=== PATIENT | female | born 1980 | race Caucasian/White ===

== ENCOUNTER 2022-02-13 01:49 | Day surgery (SDC) | payer BC, SELFPAY ==
--- NOTE | 2022-02-01 15:10 | PC.NURSE ---
Report to the Outpatient Waiting Room, entrance under the green pavilion located off [facility], at time _0830 on date _02/13/22 . OR Time: __1030 . - You and your visitor will be asked a series of questions to screen for COVID 19 for your protection. - A mask is required within the hospital. Preoperative COVID Testing Requirements: No COVID Test needed if: (proof is required; if not received patient will have Rapid Test prior to entry) - Patient has received COVID Vaccine at least 14 days prior to procedure date or - Patient has positive COVID test result within last 90 days of surgery date. COVID Test needed if above criteria is not met If not COVID vaccinated a COVID test must be conducted within 72 hours of surgery and patient is asked to isolate self from time of testing until procedure. You will go to the [facility] for your COVID testing. The [facility] is located at the corner of [address] [facility]. You will only be called if COVID results are positive and your surgeon may reschedule your elective surgery date. Patients may have clear liquids (water, carbonated beverages, clear teas, apple juice) until 3 hours prior to surgery with a maximum of 20 ounces. - No food from midnight until time of surgery - Infants may have breast milk until 4 hours before surgery, formula 6 hours prior to surgery. - Children will be allowed to drink immediately following surgery. If applicable, please bring a bottle or sippy cup to assist with drinking. Juice, water, soda, and popsicles are readily available. For infants on formula, please bring formula the day of surgery. Pacifiers are allowed. Take the following medications with a SIP of water the morning of surgery: ____NONE Medications to discontinue per physician NONE Date to take last dose____NONE Please no make-up, nail icelandic, hairspray, perfume, deodorant, or body powder the day of surgery. No jewelry (including any body piercings) or valuables the day of surgery, leave them at home. Please take a shower or bath the night before, or the morning of, surgery with an antibacterial soap. Wear comfortable, loose fitting clothing. Children are encouraged to wear pajamas. - Jewelry must be removed prior to entering the operating room. Rings and piercings that are not removed may be cut off. - The hospital will not accept responsibility for valuables. - Please leave all valuables, including medications, at home the day of surgery. If you are going home after surgery, a licensed furniture mover driver must drive you home. - NO public transportation without another adult. - We recommend that an adult stay with you for 24 hours following discharge. - We also recommend that you do not drive, make important decision, drink alcoholic beverages, or take any drugs that were not prescribed by your health care provider for at least 24 hours after your discharge time. For Pediatric surgeries, we recommend two adults accompany the child home (only one inside the building at this time). One visitor will be allowed to accompany the patient into the hospital. Patients visitor will be instructed to remain with patient at all times or leave the building. We will allow the visitor to come back to the postoperative area when patient is ready. Follow any additional instructions given to you from your surgeon. Telephone instructions given to _PATIENT and asked if any additional questions and then verbalized understanding. Patient advised to call surgeon office or pre surgery nurse liaison [phone] if any additional questions.
[2022-02-01 15:21] VITALS: BMI 37.0
--- NOTE | 2022-02-13 08:00 | P.HP_ITS ---
History of Present Illness History of Present Illness Consent: Risks, benefits, and alternatives have been discussed and questions answered. Patient agrees to proceed with procedure. Chief complaint: cin3, abnormal bleeding Narrative: Racquel Mayer is a 41 year old female who was a former patient of Dr. Sprague. She had previously undergone hysteroscopy with Savita ablation in July of 2020 with initially good results. Patient presented [facility] of [facility] with complaints of bleeding on and off since October. It was recommended to proceed with endometrial biopsy which revealed no definitive endometrial tissue but did reveal severe cervical dysplasia. It was recommended to proceed with LEEP conization with top-hat as well as hysteroscopy D&C. Possible pathology was reviewed. Risks of infection, bleeding, perforation, and inability to enter the endometrial cavity were reviewed. Patient voices understanding and agrees to proceed. Review of Systems Review of Systems: not repeated day of surgery; patient states no changes in status [facility] Surgical History Surgical History (Updated 02/13/22 @ 08:05 by Racquel Kyle MD) History of hysteroscopy 2019 Status post hysteroscopic ablation of endometrium Savita ablation 2019 Social History Social History Years smoked: 22 Smoking status: Current every day smoker Tobacco type: cigarettes Alcohol intake: current Drinks per week: 0 Alcohol use details: PT STATES ONCE EVERY 6 MONTHS Substance use: never Living arrangements: with family Spiritual care concerns: No Meds Home Medications and Allergies Home Medications Medication Instructions Recorded Confirmed Type drospirenone (contraceptive) 4 mg PO HS 02/01/22 02/01/22 History [Slynd] Allergies Allergy/AdvReac Type Severity Reaction Status Date / Time No Known Allergies Allergy Verified 02/01/22 15:02 Exam Const: General: healthy appearing and alert Orientation/consciousness: patient oriented x3 GI: GI Palp: Yes Soft to palpation, No Tenderness to palpation present (GI) and No Palpable mass present : External Female Exam: normal external appearance Speculum Exam - Vagina: normal appearance of the vagina and normal vaginal discharge Speculum Exam - Cervix: normal appearance of the cervix and Other cervical findings present (Cervical stenosis) Bimanual exam- vagina & uterus: uterine size normal and consistency normal Bimanual Exam- Adnexa, other: normal adnexae and No adnexal tenderness Neuro: General: patient oriented x3 Assessment and Plan Assessment and plan (1) Severe cervical dysplasia: Code(s): D06.9 - Carcinoma in situ of cervix, unspecified Status: Acute Assessment and Plan: Plan to proceed with LEEP conization with top-hat (2) Abnormal uterine bleeding: Code(s): N93.9 - Abnormal uterine and vaginal bleeding, unspecified Status: Acute Assessment and Plan: Plan to proceed with hysteroscopy D and C
--- NOTE | 2022-02-13 08:00 | WPDHPUPDATE1 ---
History and Physical Update Update Date/Time: 02/13/22 08:00 History and Physical has been reviewed, including an updated exam of the patient. There are NO changes in the patient's condition. Risks, benefits, and alternatives have been discussed and questions answered. Patient agrees to proceed with procedure.
[2022-02-13] MEDS: ACETAMINOPHEN 500 MG TABLET 1000 MG PO (08:59)
[2022-02-13 09:13] VITALS: BP 133/76; PULSE 65; RESP 16; TEMP 36.4; O2SAT 99
[2022-02-13] MEDS: LACTATED RINGERS 1,000 ML 30 ML IV CONT (09:20)
--- NOTE | 2022-02-13 09:24 | P.PNAN_ITS ---
Anes - Initial Pre Proc Eval Procedure: Operation Date: 02/13/22 10:30 Proposed Procedures p Hysteroscopy Dilation and Curettage - Racquel Kyle MD s Loop Electrical Excision Procedure with Top Hat - Racquel Kyle MD Date/Time: 02/13/22 09:24 Surgeon: Racquel Kyle MD Pre Op Diagnosis: cin3, abnormal bleeding Patient Data Age: 41 Gender: F Height: 1.68 m Weight: 104.7 kg Last Vital Signs Temp 36.4 C 02/13/22 09:13 Pulse 65 02/13/22 09:13 Resp 16 02/13/22 09:13 BP 133/76 02/13/22 09:13 Pulse Ox 99 02/13/22 09:13 Allergies Allergy/AdvReac Type Severity Reaction Status Date / Time No Known Allergies Allergy Verified 02/13/22 08:56 Home Medications Medication Instructions Recorded Confirmed Type drospirenone (contraceptive) 4 mg PO HS 02/01/22 02/13/22 History [Slynd] melatonin 20 mg PO HS 02/13/22 02/13/22 History Patient hx anesthesia problems: none Family hx anesthesia problems: none Results Review: All pre-operative results and documents have been reviewed as part of the pre-operative evaluation. [facility] Surgical History Surgical History (Updated 02/13/22 @ 08:05 by Racquel Kyle MD) History of hysteroscopy 2019 Status post hysteroscopic ablation of endometrium Savita ablation 2019 Social History Social History Years smoked: 22 Smoking status: Current every day smoker Tobacco type: cigarettes Alcohol intake: current Drinks per week: 0 Alcohol use details: PT STATES ONCE EVERY 6 MONTHS Substance use: never Living arrangements: with family Spiritual care concerns: No Anes - Eval Final PreProcedure Day of Procedure 02/13/22 09:24 Patient weight: obese Heart: regular rate and rhythm Lungs: clear to auscultation and normal air movement Airway: Mallampati scale class II Neurological: alert and oriented Last oral intake: >/= 8 hours ASA classification: III Emergent: no Anesthetic plan: proceed Anesthesia type and monitoring: general GIVS and standard monitoring Results Review: All pre-operative results and documents have been reviewed as part of the pre-operative evaluation. Informed Consent: The patient's anesthetic plan and its attendant risks and benefits were discussed with the patient/family/POA. Questions were solicited and answers provided to the satisfaction of the patient/family/POA.
[2022-02-13] MEDS: KETOROLAC 30 MG/ML VIAL (*BKC) IV PUSH (10:57)
[2022-02-13] MEDS: LIDO 1%/EPINEPHRINE 1:100,000 50 ML VIAL 20 ML INFILTRATE (10:58)
--- NOTE | 2022-02-13 11:06 | P.OP_ITS ---
Procedure Note - Detailed Date of Procedure 02/13/22 Pre-op Diagnosis Severe cervical dysplasia, abnormal uterine bleeding Post-op Diagnosis Same Procedure Performed Colposcopy LEEP conization of the cervix with top-hat D&C hysteroscopy Surgeon Racquel Kyle MD Anesthesia MAC and Local Findings By colposcopy no aceto-white epithelium was noted. There are thickened vessels along the entire posterior cervix. Hysteroscopic findings reveal a thickened posterior left wall. The remainder of the endometrium appears grossly normal but hyperemic. Tubal ostia are both visualized and appear normal. Description of Procedure The patient was taken to the operating room and placed under anesthesia in the dorsal lithotomy position. She was prepped and draped externally only. Coated bivalve speculum was placed in the vagina and the cervix is swabbed with ascetic acid. The colposcope was used to evaluate the ectocervix with the above-stated findings. The cervix is quite large therefore an anterior and posterior pass was planned for the LEEP. The cervix is injected in each quadrant with 1% lidocaine with epinephrine. A 2x1cm loop was used to perform an anterior pass. The same loop was used to perform a posterior pass. A 1x1cm sq loop was used to perform the top-hat. The cervix is grasped on the anterior lip with a tenaculum. The cervix is serially dilated with Hegar was with difficulty due to severe stenosis. The uterus sounds to 7cm. The diagnostic hysteroscope was placed with the above- stated findings. The hysteroscope was then removed. The medium sharp curette is used to curette the endometrium until a good uterine cry was noted in all areas. The Monsel's solution was applied to the cone bed. Good hemostasis is noted. All instruments are removed. Sponge, needle, and instrument counts are correct per the OR staff. The patient is awakened from anesthesia and taken to recovery in stable condition. Estimated Blood Loss 25 Drains No Packing No Pathology Yes (LEEP conization anterior lip marked at 12:00 with suture. LEEP conization posterior lip marked at 6:00 with suture. Top-hat marked at 12:00 with suture. Endometrial curettings) Complications No immediate complications Condition Stable Disposition PACU
[2022-02-13 11:09] VITALS: BP 123/68; PULSE 83; RESP 24; O2SAT 93
[2022-02-13 11:39] VITALS: BP 131/82; PULSE 77; RESP 16; O2SAT 97
[2022-02-13 12:09] VITALS: BP 127/70; PULSE 80; RESP 16
== END 2022-02-13 12:20 | disposition home or self-care (01) ==
PROVIDERS: Visit Provider Obstetrics & Gynecology Gynecology
PROC: 0U5B8ZZ Destruction of Endometrium, Via Natural or Artificial Opening Endoscopic (ICD-10-PCS; CPT 58563; principal; 2022-02-13 10:30)
PROC: 0UBC7ZZ Excision of Cervix, Via Natural or Artificial Opening (ICD-10-PCS; CPT 57522; 2022-02-13 10:30)
DX: D06.0 Carcinoma in situ of endocervix (principal); D06.1 Carcinoma in situ of exocervix; N85.8 Other specified noninflammatory disorders of uterus; N93.9 Abnormal uterine and vaginal bleeding, unspecified; F17.210 Nicotine dependence, cigarettes, uncomplicated; E66.9 Obesity, unspecified; Z68.37 Body mass index [BMI] 37.0-37.9, adult
CPT/HCPCS: 58558; 57460; 88305; 88307; A9270; J1100; J1885; J2250; J2405; J2704; J3010; J7030; J7120

== ENCOUNTER 2022-04-24 00:24 | Day surgery (SDC) | payer BC, SELFPAY ==
[2022-04-19 11:01] VITALS: BMI 36.0
--- NOTE | 2022-04-19 11:20 | PC.NURSE ---
Report to the Outpatient Waiting Room, entrance under the green pavilion located off [facility], at 0800 on 04-24-22. OR Time: 1000. - You and your visitor will be asked a series of questions to screen for COVID 19 for your protection. - Only one visitor is allowed at this time. - The patient visitor is requested to leave or wait in car when not with patient. - A mask is required within the hospital. Patients may have clear liquids (water, carbonated beverages, clear teas, apple juice) until 3 hours prior to surgery with a maximum of 20 ounces. 0700 - No food from midnight until time of surgery - Infants may have breast milk until 4 hours before surgery, infant formula 6 hours prior to surgery. - Children will be allowed to drink immediately following surgery. If applicable, please bring a bottle or sippy cup to assist with drinking. Juice, water, soda, and popsicles are readily available. For infants on formula, please bring formula the day of surgery. Pacifiers are allowed. Take the following medications with a SIP of water the morning of surgery: None Medications to discontinue per physician: vitamins and supplements Date to take last dose: 04-21-22 Please no make-up, nail french, hairspray, perfume, deodorant, or body powder the day of surgery. No jewelry (including any body piercings) or valuables the day of surgery, leave them at home. Please take a shower or bath the night before, or the morning of, surgery with an antibacterial soap. Wear comfortable, loose fitting clothing. Children are encouraged to wear pajamas. - Jewelry must be removed prior to entering the operating room. Rings and piercings that are not removed may be cut off. - The hospital will not accept responsibility for valuables. - Please leave all valuables, including medications, at home the day of surgery. If you are going home after surgery, a licensed class b truck driver must drive you home. - NO public transportation without another adult. - We recommend that an adult stay with you for 24 hours following discharge. - We also recommend that you do not drive, make important decision, drink alcoholic beverages, or take any drugs that were not prescribed by your health care provider for at least 24 hours after your discharge time. For Pediatric surgeries, we recommend two adults accompany the child home (only one inside the building at this time). Follow any additional instructions given to you from your surgeon. If you or anyone in your household have experienced Covid symptoms in the past week, please notify your surgeon or the nurse liaison at the phone number below for possible testing. Telephone instructions given to Racquel Mayer and asked if any additional questions and then verbalized understanding. Patient advised to call surgeon office or pre surgery nurse liaison [phone] if any additional questions.
--- NOTE | 2022-04-24 07:31 | WPDHPUPDATE1 ---
History and Physical Update Update Date/Time: 04/24/22 07:31 History and Physical has been reviewed, including an updated exam of the patient. There are NO changes in the patient's condition. Risks, benefits, and alternatives have been discussed and questions answered. Patient agrees to proceed with procedure.
--- NOTE | 2022-04-24 07:31 | PM.IMHP ---
H&P: HPI History of Present Illness Date/Time: 04/24/22 07:31 Chief Complaint: Severe dysplasia of the cervix Narrative: The patient is a 41-year-old 0 admitted for cold knife conization of the cervix. Patient had a LEEP conization of the cervix which revealed severe dysplasia with a positive endocervical margin. It was recommended to proceed with cold knife conization. If margins are clear and no invasive carcinoma is found on the final specimen, we will proceed with total abdominal hysterectomy bilateral salpingectomy 48hours later. Risks the cone including bleeding, injury to surrounding organs, and possible pathology were reviewed. Risk of the hysterectomy including infection, bleeding, injury to internal organs (eg. Bowel, bladder, ureters, ovaries), deep vein thrombosis, and general anesthesia were reviewed. The possibility of cancelling the hysterectomy due to positive margins or invasive carcinoma were reviewed. Patient voices understanding of the plan and agrees to proceed. Review of Systems Genitourinary: Genitourinary: Reports abnormal vaginal bleeding (Irregular and prolonged bleeding) [facility] Surgical History Surgical History (Updated 04/24/22 @ 07:56 by Racquel Kyle MD) History of hysteroscopy 2019-normal History of loop electrical excision procedure (LEEP) February 2022 Status post hysteroscopic ablation of endometrium Savita ablation 2019 Family History Family History (Updated 04/24/22 @ 07:56 by Racquel Kyle MD) Father Hypertension Grandparent Diabetes mellitus Heart disease Hypertension Cerebrovascular accident Social History Social History Years smoked: 20 Smoking status: Current every day smoker Tobacco type: cigarettes Second hand tobacco smoke exposure: Yes ( smokes) Alcohol intake: current Drinks per week: 0 Alcohol use details: 1-2/YEAR Substance use: never Substance use type: does not use Living arrangements: with family Spiritual care concerns: No Meds Home Medications and Allergies Home Medications Medication Instructions Recorded Confirmed Type drospirenone (contraceptive) 4 mg 4 mg PO HS 02/01/22 04/20/22 History (28) tablet (Slynd) melatonin 10 mg tablet,extended 20 mg PO HS 02/13/22 04/20/22 History release,multiphase uwqfmtor-isb-bbjg-FA-Ca carb-vit K 1 tablet PO DAILY 04/19/22 04/20/22 History 18 mg iron-400 mcg-500 mg tablet (One-A-Day Womens Formula) Allergies Allergy/AdvReac Type Severity Reaction Status Date / Time No Known Allergies Allergy Verified 04/20/22 15:06 Exam Const: General: healthy appearing and alert Orientation/consciousness: patient oriented x3 GI: GI Palp: Yes Soft to palpation, No Tenderness to palpation present (GI) and No Palpable mass present : External Female Exam: normal external appearance Speculum Exam - Vagina: normal appearance of the vagina and normal vaginal discharge Speculum Exam - Cervix: normal appearance of the cervix Bimanual exam- vagina & uterus: uterine size normal and consistency normal Bimanual Exam- Adnexa, other: normal adnexae and No adnexal tenderness Neuro: General: patient oriented x3 Assessment and Plan Assessment and plan (1) Severe cervical dysplasia: Code(s): D06.9 - Carcinoma in situ of cervix, unspecified Status: Acute Plan Plan to proceed with cervical cold knife conization. If margins are clear and no carcinoma is detected, plan is to proceed with total abdominal hysterectomy bilateral salpingectomy in 48hours.
[2022-04-24] MEDS: ACETAMINOPHEN 500 MG TABLET 1000 MG PO (08:34)
[2022-04-24] MEDS: LACTATED RINGERS 1,000 ML 30 ML IV CONT (08:34)
[2022-04-24 08:39] VITALS: BP 119/85; PULSE 91; RESP 16; TEMP 36; O2SAT 97
--- NOTE | 2022-04-24 08:51 | WPDANESEPPF ---
Anes - Initial Pre Proc Eval Procedure: Operation Date: 04/24/22 10:00 Proposed Procedures p Cold Cone Cervical Biopsy - Racquel Kyle MD Date/Time: 04/24/22 08:51 Surgeon: Racquel Kyle MD Pre Op Diagnosis: ISMAEL 3 Patient Data Age: 41 Gender: F Height: 1.7 m Weight: 101.2 kg Last Vital Signs Temp 36.0 C L 04/24/22 08:39 Pulse 91 04/24/22 08:39 Resp 16 04/24/22 08:39 BP 119/85 04/24/22 08:39 Pulse Ox 97 04/24/22 08:39 O2 Del Method Room Air 04/24/22 08:39 Allergies Allergy/AdvReac Type Severity Reaction Status Date / Time No Known Allergies Allergy Verified 04/24/22 08:23 Home Medications Medication Instructions Recorded Confirmed Type drospirenone (contraceptive) 4 mg 4 mg PO HS 02/01/22 04/24/22 History (28) tablet (Slynd) melatonin 10 mg tablet,extended 20 mg PO HS 02/13/22 04/24/22 History release,multiphase ptafrfzs-zbh-vsxa-FA-Ca carb-vit K 1 tablet PO DAILY 04/19/22 04/24/22 History 18 mg iron-400 mcg-500 mg tablet (One-A-Day Womens Formula) Patient hx anesthesia problems: none Family hx anesthesia problems: none Results Review: All pre-operative results and documents have been reviewed as part of the pre-operative evaluation. [facility] Surgical History Surgical History History of hysteroscopy 2019-normal History of loop electrical excision procedure (LEEP) February 2022 Status post hysteroscopic ablation of endometrium Savita ablation 2019 Family History Family History Father Hypertension Grandparent Diabetes mellitus Heart disease Hypertension Cerebrovascular accident Social History Social History Years smoked: 20 Smoking status: Current every day smoker Tobacco type: cigarettes Second hand tobacco smoke exposure: Yes ( smokes) Alcohol intake: current Drinks per week: 0 Alcohol use details: 1-2/YEAR Substance use: never Substance use type: does not use Living arrangements: with family Spiritual care concerns: No Anes - Eval Final PreProcedure Day of Procedure 04/24/22 08:51 Patient weight: obese Heart: regular rate and rhythm Lungs: clear to auscultation Airway: Mallampati scale class II Neurological: alert and oriented Last oral intake: >/= 8 hours ASA classification: II Emergent: no Anesthetic plan: proceed Anesthesia type and monitoring: general GIVS and standard monitoring Results Review: All pre-operative results and documents have been reviewed as part of the pre-operative evaluation. Informed Consent: The patient's anesthetic plan and its attendant risks and benefits were discussed with the patient/family/POA. Questions were solicited and answers provided to the satisfaction of the patient/family/POA.
[2022-04-24] MEDS: KETOROLAC 30 MG/ML VIAL (*BKC) IV PUSH (10:05)
--- NOTE | 2022-04-24 10:11 | SUR.OPER ---
Per Dr. Kyle needs results of Cold Cone Biopsy by tomorrow, 04/25. Patient is scheduled for surgery Sunday, 04/26. Attempted to contact Lab to inform them of timeframe. No answer. Note left on specimen and transported to Lab per MARIE Gilbert. Specimen and message received by hSanique.
[2022-04-24] MEDS: LIDO 1%/EPINEPHRINE 1:100,000 10 ML VIAL 20 ML INFILTRATE (10:14)
--- NOTE | 2022-04-24 10:17 | W.PM.PROC2 ---
Procedure Note - Detailed Date of Procedure 04/24/22 Pre-op Diagnosis ISMAEL 3 positive margins on the endocervix status post LEEP Post-op Diagnosis Same Procedure Performed Cold Knife conization of the cervix Surgeon Racquel Kyle MD Anesthesia MAC and Local (1% lidocaine with epinephrine) Findings Grossly normal-appearing ectocervix Description of Procedure The patient was taken to the operating room and placed under anesthesia in the dorsal lithotomy position. She was prepped and draped in the usual sterile fashion. [place] speculum was placed in the vagina and the cervix is grasped on the anterior lip with a tenaculum. The cervix is injected in each quadrant with 1% lidocaine with epinephrine. Stay sutures of 0 Vicryl are placed at 3 and 9:00 and tied down and tagged. The scalpel was used to remove the cone shaped portion of tissue in a circumferential manner. The base of the cone is amputated using a scalpel. The specimen was tagged at 12:00 with suture. The cone bed is cauterized with a rollerball and Monsel's was applied with good hemostasis noted. A small piece of Surgi gelfoam is rolled and placed at the cone bed and tied in place using the stay sutures. All instruments are removed. Sponge, needle, and instrument counts are correct per the OR staff. Patient is awakened from anesthesia and taken to recovery in stable condition. Estimated Blood Loss 25 Drains No Packing Yes (Gelfoam) Pathology Yes (Cervical cone marked at 12) Complications No immediate complications Condition Stable Disposition PACU
[2022-04-24 10:19] VITALS: BP 103/63; PULSE 82; RESP 12; O2SAT 96
[2022-04-24 10:50] VITALS: BP 91/68; PULSE 53
[2022-04-24 11:05] VITALS: BP 119/76; PULSE 62
== END 2022-04-24 11:13 | disposition home or self-care (01) ==
PROVIDERS: Visit Provider Obstetrics & Gynecology Gynecology
PROC: 0UB97ZZ Excision of Uterus, Via Natural or Artificial Opening (ICD-10-PCS; CPT 57520; principal; 2022-04-24 10:00)
DX: D06.0 Carcinoma in situ of endocervix (principal); F17.210 Nicotine dependence, cigarettes, uncomplicated; E66.9 Obesity, unspecified; Z68.34 Body mass index [BMI] 34.0-34.9, adult
CPT/HCPCS: 57520; 88307; A9270; J1100; J1885; J2250; J2405; J2704; J3010; J7120

== ENCOUNTER 2022-04-26 15:16 | Inpatient (IN) | payer BC, SELFPAY ==
[2022-04-20 15:07] VITALS: BMI 36.0
--- NOTE | 2022-04-20 15:21 | PC.NURSE ---
Report to the Outpatient Waiting Room, entrance under the green pavilion located off [facility], at time 10:00 on date 04/26/22. OR Time: 12:00. - You and your visitor will be asked a series of questions to screen for COVID 19 for your protection. - Only one visitor is allowed at this time. YOU WILL BE ALLOWED 2 VISITORS ONCE YOU ARE SETTLED IN YOUR ROOM AFTER SURGERY. - The patient visitor is requested to leave or wait in car when not with patient. - A mask is required within the hospital. Patients may have clear liquids (water, carbonated beverages, clear teas, apple juice) until 3 hours prior to surgery (9:00) with a maximum of 20 ounces. - No food from midnight until time of surgery Take the following medications with a SIP of water the morning of surgery: NONE Medications to discontinue per physician: VITAMINS/SUPPLEMENTS Date to take last dose: DO NOT RE-START UNTIL AFTER HYSTERECTOMY Please no make-up, nail maltese, hairspray, perfume, deodorant, or body powder the day of surgery. No jewelry (including any body piercings) or valuables the day of surgery, leave them at home. Please take a shower or bath the night before, or the morning of, surgery with an antibacterial soap. Wear comfortable, loose fitting clothing. - Jewelry must be removed prior to entering the operating room. Rings and piercings that are not removed may be cut off. - The hospital will not accept responsibility for valuables. - Please leave all valuables, including medications, at home the day of surgery. If you are going home after surgery, a licensed fence post driver must drive you home. - NO public transportation without another adult. - We recommend that an adult stay with you for 24 hours following discharge. - We also recommend that you do not drive, make important decision, drink alcoholic beverages, or take any drugs that were not prescribed by your health care provider for at least 24 hours after your discharge time. Follow any additional instructions given to you from your surgeon. If you or anyone in your household have experienced Covid symptoms in the past week, please notify your surgeon or the nurse liaison at the phone number below for possible testing. Telephone instructions given to PT - ARAM LANDEROS and asked if any additional questions and then verbalized understanding. Patient advised to call surgeon office or pre surgery nurse liaison [phone] if any additional questions.
[2022-04-26] VITALS (17 sets, daily range): BP systolic 107–148; BP diastolic 69–88; PULSE 49–84; RESP 12–24; TEMP 36.1–36.9; O2SAT 96–100
[2022-04-26] MEDS: ACETAMINOPHEN 500 MG TABLET 1000 MG PO (10:25)
[2022-04-26] MEDS: KETOROLAC 15 MG/ML VIAL (*BKC) IV PUSH (10:25)
[2022-04-26] MEDS: LACTATED RINGERS 1,000 ML 30 ML IV CONT ×2 (10:45→13:42)
[2022-04-26 11:02] LABS: Hemoglobin 12.7 g/dL (12.0-15.0)
--- NOTE | 2022-04-26 11:31 | P.HPUP_ITS ---
History and Physical Update Update Date/Time: 04/26/22 11:31 History and Physical has been reviewed, including an updated exam of the patient. There are NO changes in the patient's condition. Risks, benefits, and alternatives have been discussed and questions answered. Patient agrees to proceed with procedure. Pathology from cold knife cone is negative. Therefore, plan to proceed with VICTORIANO- BS as previously discussed.
--- NOTE | 2022-04-26 11:44 | P.PNAN_ITS ---
Anes - Initial Pre Proc Eval Procedure: Operation Date: 04/26/22 12:00 Proposed Procedures p Total Abdominal Hysterectomy with Bilateral Salpingectomy - Racquel Kyle MD Date/Time: 04/26/22 11:44 Surgeon: Racquel Kyle MD Pre Op Diagnosis: ISMAEL 3 Patient Data Age: 41 Gender: F Height: 1.7 m Weight: 102.1 kg Last Vital Signs Temp 97.0 F L 04/26/22 11:10 Pulse 84 04/26/22 11:10 Resp 18 04/26/22 11:10 BP 145/86 H 04/26/22 11:10 Pulse Ox 100 04/26/22 11:10 O2 Del Method Room Air 04/26/22 11:10 Allergies Allergy/AdvReac Type Severity Reaction Status Date / Time No Known Allergies Allergy Verified 04/26/22 11:09 Home Medications Medication Instructions Recorded Confirmed Type drospirenone (contraceptive) 4 mg 4 mg PO HS 02/01/22 04/26/22 History (28) tablet (Slynd) melatonin 10 mg tablet,extended 20 mg PO HS 02/13/22 04/26/22 History release,multiphase royhjdrb-egb-nnjv-FA-Ca carb-vit K 1 tablet PO DAILY 04/19/22 04/26/22 History 18 mg iron-400 mcg-500 mg tablet (One-A-Day Womens Formula) Laboratory Tests 04/26/22 10:24 Hgb 12.7 g/dL g/dL (12.0-15.0) Hct 40.0 % % (37.0-47.0) Patient hx anesthesia problems: none Family hx anesthesia problems: none Results Review: All pre-operative results and documents have been reviewed as part of the pre- operative evaluation. [facility] Surgical History Surgical History History of hysteroscopy 2019-normal History of loop electrical excision procedure (LEEP) February 2022 Status post hysteroscopic ablation of endometrium Savita ablation 2019 Family History Family History Father Hypertension Grandparent Diabetes mellitus Heart disease Hypertension Cerebrovascular accident Social History Social History Years smoked: 22 Smoking status: Current every day smoker Tobacco type: cigarettes Second hand tobacco smoke exposure: Yes ( smokes) Alcohol intake: current Drinks per week: 0 Alcohol use details: PT STATES ONCE EVERY 6 MONTHS Substance use: never Substance use type: does not use Living arrangements: with family Spiritual care concerns: No Anes - Eval Final PreProcedure Day of Procedure 04/26/22 11:44 Patient weight: obese Heart: regular rate and rhythm Lungs: clear to auscultation Airway: Mallampati scale class II Neurological: alert and oriented Last oral intake: >/= 8 hours ASA classification: II Emergent: no Anesthetic plan: proceed Anesthesia type and monitoring: general ETT and standard monitoring Results Review: All pre-operative results and documents have been reviewed as part of the pre- operative evaluation. Informed Consent: The patient's anesthetic plan and its attendant risks and benefits were discussed with the patient/family/POA. Questions were solicited and answers provided to the satisfaction of the patient/family/POA.
[2022-04-26] MEDS: ceFAZolin 2 GM/D5W 50 ML 2 GM/50 ML BAG IVPB (12:17)
--- NOTE | 2022-04-26 13:31 | W.PM.PROC2 ---
Procedure Note - Detailed Date of Procedure 04/26/22 Pre-op Diagnosis Severe cervical dysplasia Post-op Diagnosis Same Procedure Performed Total abdominal hysterectomy bilateral salpingectomy Surgeon Racquel Kyle MD Anesthesia General Findings Enlarged fibroid uterus, normal-appearing tubes and ovaries, evidence of recent cone Description of Procedure The patient was taken to the operating room and placed under anesthesia in the dorsal supine position. She was prepped and draped in the usual sterile fashion. A Pfannenstiel skin incision was made with a scalpel and carried down to the underlying layer of fascia which was nicked in the midline the incision was extended laterally using Guillory scissors. Ochsner was used to tent the fascia which was then dissected off using sharp and blunt dissection. The rectus muscles are in the midline and the peritoneum entered with a Peon. The incision was extended with blunt traction. The bowel was packed away using moist laparotomy sponges and the Manny placed. The uterus is grasped on the cornea with large Peon. The round ligaments were doubly ligated, transected, and the anterior leaf of the broad ligament incised meeting in the midline. The bladder was dissected off using sharp and blunt dissection. The left tube is grasped with a Juanita, a window was created in the posterior leaf of the broad ligament, and curved zeppelin clamps are used to clamp the utero-ovarian ligaments. The pedicles are transected and suture ligated with 0 Vicryl. Same procedure was performed on the right side. The uterine vessels are skeletonized, clamped, transected, and suture ligated with 0 Vicryl. The cardinal and uterosacral ligaments are serially clamped, transected, and suture ligated with 0 Vicryl. The uterosacral ligaments were tagged for future use. The vaginal cuff was entered anteriorly with a scalpel. The vaginal cuff was grasped with long Allis clamps. The specimen was amputated using Charbel scissors. The vaginal cuff was grasped anteriorly and posteriorly with long Allis clamps. The vaginal cuff was closed using 0 Vicryl in a running locked fashion. Angles were tied to the ipsilateral uterosacral ligaments that were previously tagged. The pelvis is irrigated and all pedicles are visualized and noted to be hemostatic. The sponges and instruments are removed. The fascia is closed using 0 Vicryl in a running fashion. Subcutaneous tissues are irrigated and made hemostatic using Bovie cautery. Skin is closed using 4-0 Vicryl in a subcuticular fashion. Sponge, needle, and instrument counts are correct per the OR staff. Patient was given Ancef prior to incision. Patient was awakened from anesthesia and taken to recovery in stable condition. Estimated Blood Loss 50 Drains Yes (Acuña catheter) Packing No Pathology Yes (Uterus and tubes) Complications No immediate complications Condition Stable Disposition PACU
--- NOTE | 2022-04-26 13:39 | PM.DS ---
DS: Admitting Diagnosis Discharge Date 04/28/22 Admitting Diagnosis Severe cervical dysplasia of the cervix DS: Discharge Diagnosis Discharge Diagnosis (1) Severe cervical dysplasia: Code(s): D06.9 - Carcinoma in situ of cervix, unspecified Status: Acute (2) S/P total abdominal hysterectomy: Code(s): Z90.710 - Acquired absence of both cervix and uterus Status: Acute DS: Summary Hospital Course Hospital Course: The patient is tolerating a regular diet, voiding, and ambulating prior to discharge. Status at Discharge Functional status at discharge: independent ambulation Overall status at discharge: patient is progressing back to baseline Time Spent with Patient Time attestation: Total time spent providing and/or coordinating discharge services: DS: Data Data Completed and Pending Pending studies at discharge: Pending at discharge 04/26/22 13:26 Surgical [PTH] Routine Labs on day of discharge: Labs from last 24 hours 04/26/22 04/26/22 10:24 10:24 Hgb 12.7 Hct 40.0 Blood Type O Positive Antibody Screen Negative Discharge Plan Discharge Attending physician on discharge: Racquel Kyle Discharging Clinician: Racquel Kyle Anticipated Discharge Date/Time: 04/28/22 07:40 Patient Disposition: Home, Self-Care Activity: may shower, may drive after 2 weeks and pelvic rest Diet: regular Wound Care Instructions: keep dressing dry Stand Alone Forms: General Discharge Instructions Follow-up/Referrals: Racquel Kyle MD [Physician] - 1 Week Discharge Medications: New hydrocodone-acetaminophen 7.5-325 mg/15 mL Solution 5 mg PO Q4H PRN (Reason: Pain Rated 5 Or Less) Qty: 120 0RF Continued One-A-Day Womens Formula 18 mg iron-400 mcg-500 mg Tablet 1 tablet PO DAILY melatonin 10 mg Tablet,Ext Release Multiphase 20 mg PO HS Discontinued Slynd 4 mg (28) tablet 4 mg PO HS Date of admission: 04/26/22 15:16 Primary Care Provider: PHYSICIAN,SLAB OFF MILL TENDER Admitting Provider: Racquel Kyle Attending physician on admission: Racquel Kyle Condition: Stable
[2022-04-26] MEDS: fentaNYL CITRATE INJ (*CRX) 100 MCG/2 ML VIAL 25 MCG IV PUSH ×7 (14:07→15:07)
[2022-04-26] MEDS: HYDROmorphone HCL INJ (*CRX) 1 MG/ML SYR 0.5 MG IV PUSH ×4 (14:25→14:41)
[2022-04-26] MEDS: KETOROLAC 30 MG/ML VIAL (*BKC) IV PUSH (15:38)
[2022-04-26] MEDS: DEXTROSE 5%/LACTATED RINGERS 1,000 ML 125 ML IV CONT (15:40)
--- NOTE | 2022-04-26 15:56 | OBPPTRN ---
1518 Patient transferred to post room #289 via bed. Support person present. Oriented to unit, room, information board, admission packet and security measures. Patient verbalizes understanding.
[2022-04-26] MEDS: FENTANYL 600MCG/NS30MLPCA(*CRX 600 MCG/30 ML PCA.VIAL IV CONT (16:10)
[2022-04-26] MEDS: HYDROcodone/acetaminophen (*CRX) 10-325 MG TABLET 1 TAB PO (20:05)
[2022-04-26] MEDS: SIMETHICONE 80 MG TAB.CHEW PO (20:05)
[2022-04-26] MEDS: IBUPROFEN 600 MG TABLET PO (20:58)
[2022-04-26] MEDS: Acetaminophen/HYDROcodone ELIXIR (*CRX) 7.5 MG/15 ML UDC 10 MG PO (23:16)
[2022-04-27] MEDS: SIMETHICONE 80 MG TAB.CHEW PO ×3 (02:44→14:48)
[2022-04-27] MEDS: IBUPROFEN SUSPENSION 200 MG/10 ML UDC 600 MG PO ×3 (02:44→17:41)
[2022-04-27] MEDS: Acetaminophen/HYDROcodone ELIXIR (*CRX) 7.5 MG/15 ML UDC 10 MG PO ×5 (02:45→18:56)
[2022-04-27 03:37] VITALS: BP 122/71; PULSE 61; RESP 18; TEMP 36.4
[2022-04-27 05:10] LABS: Basophils Absolute Auto 0.1 K/mm3 (0.0-0.1); Basophils Percent Auto 0.2 % (0.2-1.2); Hematocrit 33.7 % (37.0-47.0); Hemoglobin 10.8 g/dL (12.0-15.0); Immature Granulocyte Absolute 0.11 K/mm3 (0.00-0.031); Immature Granulocyte Percent A 0.5 % (0-0.5); Lymphocytes Absolute Auto 1.93 K/mm3 (0.9-3.2); Mean Corpuscular Hemoglobin 27.3 pg (26-34); Mean Corpuscular Volume 85.1 fl (80-100); Mean Platelet Volume 11.3 fl (7.4-10.4); Monocytes Absolute Auto 1.2 K/mm3 (0.1-0.6); Monocytes Percent Auto 5.5 % (2.6-8.5); Neutrophils Absolute Auto 18.2 K/mm3 (1.3-6.7); Neutrophils Percent Auto 84.8 % (45.5-73.1); Platelet Count Result 351 k/mm3 (150-375); Red Blood Count 3.96 M/mm3 (4.2-5.4); Red Cell Distribution Width 15.8 % (11.5-14.5); White Blood Count 21.4 K/mm3 (4.5-10.0)
--- NOTE | 2022-04-27 07:46 | PM.GYNPNOP ---
SHEET ROCK APPLICATOR - A/P Postoperative Procedures: Procedures Operation Date: 04/26/22 12:00 Actual Procedure Side Surgeon p Total Abdominal Hysterectomy with Bilateral Salpingectomy Racquel Kyle MD Postoperative day: 1 Postoperative status: doing well Postoperative plan: routine post-op care Time Spent With Patient Time: Total time spent is greater than 50% in coordination of care (as documented) at patient's floor/unit and/or counseling patient: Time with patient: less than 15 minutes SHEET ROCK APPLICATOR- PN:Subj Post-Op Subjective Date/time seen: 04/27/22 07:46 Subjective: pain is well controlled and patient is tolerating oral intake Exam Narrative: inc c/d/i abdomen ND, NT SHEET ROCK APPLICATOR - PN: Obj Data Vital Signs Vital Signs: Vital Signs - 24 hr 04/26/22 11:10 04/26/22 13:42 04/26/22 13:55 Temperature 97.0 F L Pulse Rate 84 71 53 L Respiratory Rate 18 12 20 Blood Pressure 145/86 H 112/72 109/83 Pulse Oximetry 100 99 100 Oxygen Delivery Room Air Simple Face Mask Simple Face Mask Oxygen Flow Rate 8 8 04/26/22 14:10 04/26/22 14:25 04/26/22 14:40 Temperature Pulse Rate 55 L 52 L 51 L Respiratory Rate 24 H 22 H 20 Blood Pressure 115/69 122/72 131/71 Pulse Oximetry 100 100 98 Oxygen Delivery Simple Face Mask Simple Face Mask Room Air Oxygen Flow Rate 8 8 04/26/22 14:55 04/26/22 15:10 04/26/22 15:25 Temperature 97.6 F Pulse Rate 49 L 56 L 56 L Respiratory Rate 12 19 16 Blood Pressure 133/72 128/88 130/77 Pulse Oximetry 99 96 100 Oxygen Delivery Room Air Room Air Oxygen Flow Rate 04/26/22 16:10 04/26/22 16:00 04/26/22 17:00 Temperature 97.8 F Pulse Rate 62 Respiratory Rate 18 20 18 Blood Pressure 142/74 H Pulse Oximetry 97 97 96 Oxygen Delivery Oxygen Flow Rate 04/26/22 18:00 04/26/22 17:00 04/26/22 18:00 Temperature Pulse Rate 59 L 58 L Respiratory Rate 18 18 18 Blood Pressure 148/80 H 117/72 Pulse Oximetry 97 96 97 Oxygen Delivery Oxygen Flow Rate 04/26/22 19:00 04/26/22 20:00 04/26/22 20:50 Temperature 98.4 F 98.0 F 98.2 F Pulse Rate 65 59 L 62 Respiratory Rate 18 18 18 Blood Pressure 118/69 124/71 120/74 Pulse Oximetry 97 Oxygen Delivery Oxygen Flow Rate 04/26/22 19:00 04/26/22 20:50 04/26/22 19:00 Temperature Pulse Rate Respiratory Rate 18 18 Blood Pressure Pulse Oximetry 99 97 Oxygen Delivery Room Air Oxygen Flow Rate 04/26/22 23:15 04/26/22 23:30 04/27/22 03:37 Temperature 98.0 F 97.6 F Pulse Rate 80 61 Respiratory Rate 18 18 Blood Pressure 107/74 122/71 Pulse Oximetry Oxygen Delivery Room Air Oxygen Flow Rate 04/27/22 02:45 Temperature Pulse Rate Respiratory Rate Blood Pressure Pulse Oximetry Oxygen Delivery Room Air Oxygen Flow Rate Intake/Output Intake/Output: Intake & Output 04/24/22 04/25/22 04/26/22 04/27/22 23:59 23:59 23:59 23:59 Intake Total 1140 1200 Output Total 690 1300 Balance 450 -100 Meds/Results Medications: Active Medications Generic Name Dose Route Start Last Admin Trade Name Freq PRN Reason Stop Dose Admin Acetaminophen 1,000 mg 04/26/22 20:25 Acetaminophen Elixir 325 Mg/10.15 Ml Udc PO Q6H PRN Mild Pain (1-3) or Fever Hydrocodone Bitart/Acetaminophen 10 mg 04/26/22 20:48 04/27/22 02:45 Acetaminophen/Hydrocodone Elixir (*Crx) 7.5 Mg/15 Ml Udc PO 10 mg Q3H PRN Administration Pain Rated 6 or Greater Hydrocodone Bitart/Acetaminophen 5 mg 04/26/22 20:50 Acetaminophen/Hydrocodone Elixir (*Crx) 7.5 Mg/15 Ml Udc PO Q3H PRN Pain Rated 5 or Less Ibuprofen 600 mg 04/26/22 20:21 04/27/22 02:44 Ibuprofen Suspension 200 Mg/10 Ml Udc PO 600 mg Q6H PRN Administration Cramping Ketorolac Tromethamine 30 mg 04/26/22 15:16 04/26/22 15:38 Ketorolac 30 Mg/Ml Vial (*Bkc) IV PUSH 05/01/22 15:15 30 mg Q6H PRN Administration Pain Rated 4-6 Naloxone HCl 0.1 mg 04/26/22 15
[2022-04-27 07:55] VITALS: BP 116/68; PULSE 57; RESP 18; TEMP 36.7; O2SAT 97
[2022-04-27 12:05] VITALS: BP 108/59; PULSE 61; RESP 16; TEMP 36.7; O2SAT 99
--- NOTE | 2022-04-27 12:47 | P.PNAN_ITS ---
Anes - Prog Note Post-Op Date/Time: 04/27/22 12:47 Cardiovascular status: normal Respiratory status: normal Airway patency: baseline Mental status: baseline Post-Op hydration status: normal Vital Signs: Last Vital Signs Temp 98.1 F 04/27/22 12:05 Pulse 61 04/27/22 12:05 Resp 16 04/27/22 12:05 BP 108/59 L 04/27/22 12:05 Pulse Ox 99 04/27/22 12:05 O2 Del Method Room Air 04/27/22 11:40 O2 Flow Rate 8 04/26/22 14:25 Pain Score (VAS): 0 I/O: Intake & Output 04/26/22 04/27/22 04/27/22 23:59 07:59 15:59 Intake Total 840 1200 300 Output Total 250 1300 Balance 590 -100 300 Laboratory Tests 04/27/22 03:26 04/27/22 03:26 WBC 21.4 H RBC 3.96 L Hgb 10.8 L Hct 33.7 L MCV 85.1 MCH 27.3 MCHC 32.0 RDW 15.8 H Plt Count 351 MPV 11.3 H Immature Gran % (Auto) 0.5 Neut % (Auto) 84.8 H Lymph % (Auto) 9.0 L Mcmullen % (Auto) 5.5 Eos % (Auto) 0.0 Baso % (Auto) 0.2 Lymph # (Auto) 1.93 Mcmullen # (Auto) 1.2 H Eos # (Auto) 0.0 Baso # (Auto) 0.1 Abs Immat Gran (auto) 0.11 H Absolute Neuts (auto) 18.2 H Absolute Nucleated RBC 0.0 Nucleated RBC % 0.0 Patient Feedback: Patient satisfied with anesthetic care.
[2022-04-27 18:55] VITALS: BP 127/74; PULSE 74; RESP 18; TEMP 36.4
[2022-04-28] MEDS: SIMETHICONE 80 MG TAB.CHEW PO (04:39)
[2022-04-28] MEDS: Acetaminophen/HYDROcodone ELIXIR (*CRX) 7.5 MG/15 ML UDC 10 MG PO (04:40)
[2022-04-28] MEDS: IBUPROFEN SUSPENSION 200 MG/10 ML UDC 600 MG PO (04:41)
--- NOTE | 2022-04-28 07:38 | P.PNOB_ITS ---
TALENT DEVELOPMENT MANAGER - A/P Postoperative Procedures: Procedures Operation Date: 04/26/22 12:00 Actual Procedure Side Surgeon p Total Abdominal Hysterectomy with Bilateral Salpingectomy Racquel Kyle MD Postoperative day: 2 Postoperative status: doing well Postoperative plan: routine post-op care and discharge Time Spent With Patient Time: Total time spent is greater than 50% in coordination of care (as documented) at patient's floor/unit and/or counseling patient: Time with patient: less than 15 minutes TALENT DEVELOPMENT MANAGER- PN:Subj Post-Op Subjective Date/time seen: 04/28/22 07:38 Subjective: patient reports feeling better, pain is well controlled and patient is tolerating oral intake Exam Narrative: abdomen soft, nt inc c/d/i TALENT DEVELOPMENT MANAGER - PN: Obj Data Vital Signs Vital Signs: Vital Signs - 24 hr 04/27/22 08:00 04/27/22 07:55 04/27/22 12:05 Temperature 98.1 F 98.1 F Pulse Rate 57 L 61 Respiratory Rate 18 16 Blood Pressure 116/68 108/59 L Pulse Oximetry 97 99 Oxygen Delivery Room Air 04/27/22 11:40 04/27/22 18:55 04/27/22 18:55 Temperature 97.6 F Pulse Rate 74 Respiratory Rate 18 Blood Pressure 127/74 Pulse Oximetry Oxygen Delivery Room Air Room Air Intake/Output Intake/Output: Intake & Output 04/25/22 04/26/22 04/27/22 04/28/22 23:59 23:59 23:59 23:59 Intake Total 1140 1740 Output Total 690 1300 Balance 450 440 Meds/Results Medications: Active Medications Generic Name Dose Route Start Last Admin Trade Name Freq PRN Reason Stop Dose Admin Acetaminophen 1,000 mg 04/26/22 20:25 Acetaminophen Elixir 325 Mg/10.15 Ml Udc PO Q6H PRN Mild Pain (1-3) or Fever Hydrocodone Bitart/Acetaminophen 10 mg 04/26/22 20:48 04/28/22 04:40 Acetaminophen/Hydrocodone Elixir (*Crx) 7.5 Mg/15 Ml Udc PO 10 mg Q3H PRN Administration Pain Rated 6 or Greater Hydrocodone Bitart/Acetaminophen 5 mg 04/26/22 20:50 Acetaminophen/Hydrocodone Elixir (*Crx) 7.5 Mg/15 Ml Udc PO Q3H PRN Pain Rated 5 or Less Ibuprofen 600 mg 04/26/22 20:21 04/28/22 04:41 Ibuprofen Suspension 200 Mg/10 Ml Udc PO 600 mg Q6H PRN Administration Cramping Ketorolac Tromethamine 30 mg 04/26/22 15:16 04/26/22 15:38 Ketorolac 30 Mg/Ml Vial (*Bkc) IV PUSH 05/01/22 15:15 30 mg Q6H PRN Administration Pain Rated 4-6 Naloxone HCl 0.1 mg 04/26/22 15:16 Naloxone Hcl 0.4 Mg/Ml Vial IV PUSH Q2M PRN Respiratory rate less than 10 Ondansetron HCl 4 mg 04/26/22 15:16 Ondansetron Inj 4 Mg/2 Ml Vial IV PUSH Q6H PRN Nausea Simethicone 80 mg 04/26/22 15:16 04/28/22 04:39 Simethicone 80 Mg Tab.Chew PO 80 mg Q2H PRN Administration Gas Labs CBC & Chem 7: 04/27/22 03:26
[2022-04-28 08:15] VITALS: BP 127/79; PULSE 78; RESP 18; TEMP 36.2; O2SAT 100
== END 2022-04-28 08:48 | disposition home or self-care (01) | DRG 741 ==
LOC: ANHOB2 04-28 06:30
PROVIDERS: Admitting Provider Obstetrics & Gynecology Gynecology; Visit Provider Obstetrics & Gynecology Gynecology
PROC: 0UT94ZZ Resection of Uterus, Percutaneous Endoscopic Approach (ICD-10-PCS; principal; 2022-04-26 12:00)
DX: D06.9 Carcinoma in situ of cervix, unspecified (principal); N85.2 Hypertrophy of uterus; F17.210 Nicotine dependence, cigarettes, uncomplicated
CPT/HCPCS: 36415; 85014; 85018; 85025; 86850; 86900; 86901; 88307; 88342; 99199; A9270; J0690; J1100; J1170; J1885; J2250; J2405; J2704; J2710; J3010; J7120; J7121

== ENCOUNTER → 2022-12-21 13:20 | Outpatient (CLI) | payer BC, SELFPAY ==
--- NOTE | ~2022-12-21 | MM_ITS ---
EXAMINATION: MM screening christal BI w [facility] HISTORY: Screening mammogram TECHNIQUE: Craniocaudal and mediolateral oblique 3-D tomosynthesis images were obtained and synthetic 2-D images were generated. CAD analysis was submitted and interpreted. COMPARISON: No prior mammogram is available for comparison at this institution. BREAST PARENCHYMAL COMPOSITION: The breasts are extremely dense, which lowers the sensitivity of mamm ography. FINDINGS: RIGHT BREAST: There is a possible mass in the posterior third of the upper outer quadrant of the [address]. LEFT BREAST: An asymmetry is present in the far posterior third of the breast just below the nipple a xis on the mediolateral oblique view. An asymmetry is also seen in the middle third of the upper [address] 9 cm from the nipple on the mediolateral oblique view. IMPRESSION: 1. Bilateral breast findings as described above. 2. Additional mammographic views and possible breast ultrasound are recommended. BI-RADS Category 0: Incomplete: Needs additional imaging evaluation. Reviewed, dictated and finalized at location A. L GRINDER IMPRESSION: 1. Bilateral breast findings as described above. 2. Additional mammographic views and possible breast ultrasound are recommended . BI-RADS Category 0: Incomplete: Needs additional imaging evaluation.
== END ==
PROVIDERS: PCP Obstetrics & Gynecology Gynecology; Visit Provider Obstetrics & Gynecology Gynecology
DX: Z12.31 Encounter for screening mammogram for malignant neoplasm of breast (principal); R92.8 Other abnormal and inconclusive findings on diagnostic imaging of breast
CPT/HCPCS: 77063; 77067

== ENCOUNTER → 2023-01-16 09:04 | Outpatient (CLI) | payer BC, SELFPAY ==
--- NOTE | ~2023-01-16 | MMUS_ITS ---
EXAMINATION: MM diagnostic christal BI w [place], US breast BI complete HISTORY: Bilateral mammographic asymmetries reported on 12/31/2022 bilateral screening mammogram TECHNIQUE: Additional 3-D tomosynthesis images of both breasts were performed and synthetic 2-D image s were generated. CAD analysis was submitted and interpreted. High resolution complete bilateral [address] ultrasound examination including all 4 quadrants and subareolar areas was performed. COMPARISON: 12/31/2022 bilateral screening mammogram FINDINGS: MAMMOGRAPHIC FINDINGS: No suspicious mass, architectural distortion, malignant calcification, skin thickening or retraction is evident. The extremely dense mammographic stroma bilaterally may obscure masses. This reason, lateral complete breast ultrasound examination was performed. ULTRASOUND: Right breast: 3:00 3 cm from nipple: 2.1 x 5.1 x 4.2 mm cyst No suspicious mass or shadowing is detected. Left breast: Parallel circumscribed hypoechoic 2.4 x 4.9 x 4.1 mm lesion without internal vascularity or posterior shadowing No suspicious mass or shadowing is detected. IMPRESSION: 1. Benign findings 2. Routine annual mammographic screening is recommended, with possible ultrasound examination due to the extremely dense stroma BI-RADS Category 2: Benign finding(s). Reviewed, dictated and finalized at location A. IMPRESSION: 1. Benign findings 2. Routine annual mammographic screening is recommended, with possible ultrasou nd examination due to the extremely dense stroma BI-RADS Category 2: Benign finding(s).
== END ==
PROVIDERS: PCP Obstetrics & Gynecology Gynecology; Visit Provider Obstetrics & Gynecology Gynecology
DX: R92.8 Other abnormal and inconclusive findings on diagnostic imaging of breast (principal)
CPT/HCPCS: 76641; 77062; 77066; G0279

== ENCOUNTER 2024-09-12 08:33 | Outpatient (CLI) | payer BC, SELFPAY ==
--- NOTE | ~2024-09-12 | MM_ITS ---
EXAMINATION: MM screening christal BI w [place] HISTORY: Screening TECHNIQUE: Craniocaudal and mediolateral oblique 3-D tomosynthesis images were obtained and synthetic 2-D images were generated. CAD analysis was submitted and interpreted. COMPARISON: 12/21/2022 BREAST PARENCHYMAL COMPOSITION: Dense: The breasts are extremely dense, which lowers the sensitivity of mammography. FINDINGS: There is no evidence of suspicious mass, calcification, or architectural distortion to sugg est malignancy in either breast. There has been no suspicious interval change. IMPRESSION: 1. No mammographic evidence of malignancy. 2. Recommend routine screening mammography in one year. BI-RADS Category 1: Negative Reviewed, dictated and finalized at location [] ET CONSULTANT
== END 2024-09-12 08:34 | disposition home or self-care (01) ==
LOC: MICIMG 08:33
PROVIDERS: PCP Obstetrics & Gynecology Gynecology; Visit Provider Obstetrics & Gynecology Gynecology
DX: Z12.31 Encounter for screening mammogram for malignant neoplasm of breast (principal)
CPT/HCPCS: 77063; 77067